=== PATIENT | female | born 1970 | race Hispanic/Latino ===

== ENCOUNTER 2018-08-17 09:43 | Emergency (ER) | payer OTHER ==
[2018-08-17] MEDS ORDERED: SODIUM CHLORIDE 0.9% 1000ML 1,000 ML IV ONE (10:26)
[2018-08-17 10:38] LABS: BASOPHILS % (AUTO) 0.7 % (0.0-5.0); EOSINOPHILS % (AUTO) 2.8 % (0.0-8.0); LYMPHOCYTES % (AUTO) 23.4 % (21.0-51.0); MEAN CORPUSCULAR HEMOGLOBIN 25.9 pg (27.0-33.0); MEAN CORPUSCULAR HGB CONC 32.7 g/dL (32.0-36.0); MEAN CORPUSCULAR VOLUME 79.2 fL (79-99); MONOCYTES % (AUTO) 8.1 % (3.0-13.0); PLATELET COUNT (AUTO) 220 K/uL (130-400); RED BLOOD CELL COUNT(AUTO) 4.55 MIL/uL (4.00-5.50); RED CELL DISTRIBUTION WIDTH 15.1 % (11.0-15.5); WHITE BLOOD COUNT (AUTO) 6.1 K/uL (4.8-10.8)
[2018-08-17 10:46] LABS: CREATININE 0.7 mg/dL (0.5-1.5); POTASSIUM 4.4 mmol/L (3.5-5.1)
[2018-08-17 10:50] LABS: ALBUMIN 3.6 g/dL (3.5-5.0); BILIRUBIN,DIRECT 0.1 mg/dL (0.0-0.3); BILIRUBIN,TOTAL 0.3 mg/dL (0.2-1.0); TOTAL PROTEIN, SERUM 7.5 g/dL (6.0-8.3)
[2018-08-17 11:29] LABS: APPEARANCE,URINE Clear (CLEAR); BILIRUBIN,URINE Negative (NEGATIVE); COLOR,URINE Yellow (YELLOW); GLUCOSE, URINE (UA) Negative (NEGATIVE); KETONES,URINE Negative (NEGATIVE); LEUKOCYTE ESTERASE ,URINE Small (NEGATIVE); NITRATE,URINE Negative (NEGATIVE); OCCULT BLOOD,URINE Trace (NEGATIVE); PH,URINE 6.5 (5.0-8.0); PROTEIN,URINE Negative (NEGATIVE); UROBILINOGEN,URINE 0.2 mg/dL (0.2-1.0)
[2018-08-17 11:30] LABS: HCG,QUAL RESULT NEGATIVE (NEGATIVE)
[2018-08-17 11:55] LABS: BACTERIA,URINE Rare /HPF (None Seen); RBC,URINE 0-1 /HPF (0-1); SQUAMOUS EPITHELIAL CELL,UR Few /HPF (0-2)
[2018-08-17] MEDS ORDERED: KETOROLAC TROMETHAMINE 30MG/ML ONE (11:59)
== END 2018-08-17 13:16 | disposition home or self-care (01) ==
LOC: EDH 09:43
DX: N39.0 Urinary tract infection, site not specified (principal); Z98.51 Tubal ligation status
CPT/HCPCS: 36415; 74176; 80048; 80076; 81001; 81025; 83690; 85025; 96374; 99285; J1885; J7030